=== PATIENT | female | born 1940 | race Caucasian/White ===

== ENCOUNTER 2019-02-17 08:18 | Inpatient (IN) | payer OTHER ==
[~2019-02-17] VITALS: Ht 157.5 cm; Wt 79.8 kg
[2019-02-17] MEDS ORDERED: ALDACTONE25 MG PO (09:03)
[2019-02-17] MEDS ORDERED: METOPR PO (09:03)
[2019-02-17] MEDS ORDERED: CANDESARTAN-HC1 EAC1 PO (09:04)
[2019-02-17] MEDS ORDERED: METFORMIN HCL500 MG PO (09:05)
[2019-02-17] MEDS ORDERED: LO-DOSE ASPIRIN81 MG PO (09:05)
[2019-03-02] MEDS ORDERED: METOPROLOL TAR100 MG PO (09:29)
[2019-03-05] MEDS ORDERED: PERCOCET 5-3251 EACH PO (07:43)
[2019-03-05] MEDS ORDERED: CIPRO500 MG PO (07:43)
[2019-03-05] MEDS ORDERED: ELIQUIS2.5 MG PO (07:43)
== END 2019-03-05 09:22 | disposition home or self-care (01) | DRG 470 ==
LOC: SURH 02-23 09:15 → O/R 03-02 06:18 → SURG 03-02 06:18
PROVIDERS: ADMIT Orthopaedic Surgery
PROC: 0MNP0ZZ Release Left Knee Bursa and Ligament, Open Approach (ICD-10-PCS; 2019-03-02)
PROC: 0SRD0J9 Replacement of Left Knee Joint with Synthetic Substitute, Cemented, Open Approach (ICD-10-PCS; principal; 2019-03-02 11:15)
PROC: 30233N1 Transfusion of Nonautologous Red Blood Cells into Peripheral Vein, Percutaneous Approach (ICD-10-PCS; 2019-03-04)
DX: M17.12 Unilateral primary osteoarthritis, left knee (principal); D62 Acute posthemorrhagic anemia; M81.0 Age-related osteoporosis without current pathological fracture; I10 Essential (primary) hypertension; E11.9 Type 2 diabetes mellitus without complications; E66.8 Other obesity